=== PATIENT | female | born 1945 | race Caucasian/White ===

== ENCOUNTER 2019-02-28 15:32 | Emergency (ER) | payer MEDICARE, MEDICAID, SELFPAY ==
[2019-02-28] VITALS (7 sets, daily range): BP systolic 72–153; BP diastolic 47–80; PULSE 115–125; RESP 24–33; TEMP 37.4; O2SAT 5–96; BMI 31.7
--- NOTE | 2019-02-28 15:40 | ED_ITS ---
Entered by Tony Aquino LPN, acting as scribe for Edwin Macario MD HPI - SOB/Dyspnea General: Chief Complaint: Shortness of Breath/Dyspnea Stated Complaint: RESP DISTRESS Time Seen by Provider: 02/28/19 15:36 Source: EMS and other ([place] paperwork) Mode of arrival: EMS History of Present Illness: HPI Narrative: 74 yo female who is very hard of hearing presents from [place] with c/o shortness of breath. EMS reports pt was 77% on 3L at the [place]. She received a Duoneb in route with EMS and sat came up to the 80's. Upon arrival to ER she is sating 96% on 4L n/c. NH reported pt was having difficulty breathing this am, they administered neb treatment this am and again after lunch and pt continued to worsen. Pt is c/o pain to her abd during exam. FULL CODE status. MD elicited complaint: shortness of breath Severity: moderate Relieving factors: nothing Associated symptoms: Reports abdominal pain; Deny chest pain, diaphoresis, extremity pain, fever(s), nausea or vomiting Review of Systems Const: Denies: fever, chills, night sweats or diaphoresis Eyes: Denies: change in vision or blurry vision ENMT: Denies: throat pain Card: Denies: chest pain Resp: Reports: shortness of breath GI: Reports: abdominal pain; Denies: nausea, vomiting, constipation or change in bowel habits : Denies: painful urination Musc: Denies: extremity pain or joint pain Skin/Breast: Denies: rash Neuro: Denies: headache, difficulty walking or confusion Psych: Denies: suicidal ideation or homicidal ideation PFSH ED PFSH: Statuses (acute, chronic, etc) shown below reflect problem list status as previously entered and may not be historically accurate Medical History (Updated 02/28/19 @ 18:22 by Edwin Macario MD) CHF (congestive heart failure) (Acute) Cirrhosis, alcoholic (Acute) CVA (cerebral vascular accident) (Acute) Dementia with psychosis (Acute) GERD (gastroesophageal reflux disease) (Acute) Hepatic encephalopathy (Acute) Hepatitis (Acute) Hypertension (Acute) Seizures (Acute) Social History Smoking and tobacco status: never smoked Physical Exam Const: COMMON NORMALS: no apparent distress, oriented x3, no limitations and alert EXAM LIMITATIONS: no altered mental status GENERAL APPEARANCE: cooperative, comfortable and well developed; not in distress, not anxious and not lethargic ORIENTATION/CONSCIOUSNESS: Yes awake, Yes oriented to person, Yes oriented to place and Yes oriented to time; not lethargic HENMT: COMMON NORMALS: normocephalic, head/scalp atraumatic and external nose normal HEAD & SCALP: normocephalic and atraumatic FACE & SINUS: normal facial exam NOSE: external nose normal Eye: COMMON NORMALS: PERRL, EOMs intact bilaterally, conjunctivae normal and no scleral icterus CONJUNCTIVA: Yes conjunctivae normal PUPIL: Yes PERRL Neck/C-Spine: COMMON NORMALS: full ROM GENERAL: Yes normal visual inspection Chest: COMMONS NORMALS: inspection of chest normal and palpation of chest normal Resp: COMMON NORMALS: no retractions and no use of accessory muscles EFFORT & INSPECTION: Yes other (mild increased work of breathing) AUSCULTATION: rhonchi left upper and right upper and other (coarse lung sounds) Cardio: COMMON NORMALS: regular rate, regular rhythm, no murmurs and peripheral pulses 2+ throughout RATE: regular rate RHYTHM: regular rhythm PERIPHERAL PULSES: pulses 2+ throughout, radial pulses present and posterior tibial pulses present GI: COMMON NORMALS: soft to palpation, no hepatosplenomegaly, no masses and no bruits INSPECTION: No abdominal distension PALPATION: Yes soft, Yes tender (mild, diffuse) and Yes no hepatosplenomegaly Extremity: COMMON NORMALS: normal to inspection, full ROM, normal capillary refill, no joint enlargement and no clubbing, cyanosis or edema Neuro: COMMON NORMALS: oriented x3 SENSORIUM/ORIENTATION: Yes alert, Yes oriented to person, Yes oriented to place, Yes oriented to time and No lethargic Psych: COMMON NORMALS: mental status grossly normal, thought process normal, cooperative, affect normal, speech normal and activity/motor behavior normal SPEECH: Yes normal speech THOUGHT PROCESS: normal thought process Skin: COMMON NORMALS: no rashes or lesions noted and skin turgor normal GENERAL SKIN EXAM: no rashes or lesions noted, elasticity normal and turgor normal Course ED course: I did bedside US showing cardiac contractility, mild pulmonary edema, collapsed IVC. 1640: Discussed pt's breathing with her, explained I don't need to intubate her now, if it is needed she does agree to intubation. Consultations: Consultation #1: Discussed with Dr. Lucero, hospitalist. He advises transfer to facility with Pulmonology Time: 17:47 Consultation #2: [id number]: leno Ray, they will call us back. Vital Signs: Vital signs: Vital Signs Temperature 99.4 F 02/28/19 15:33 Pulse Rate 116 H 02/28/19 16:40 Respiratory Rate 24 H 02/28/19 16:40 Blood Pressure 72/60 02/28/19 15:33 Pulse Oximetry 94 02/28/19 16:40 MDM - SOB/Dyspnea MDM Narrative: Medical decision making narrative: Patient is a 74-year-old female halfway patient who is here for 1 day of shortness of breath increased work of breathing. She is tachypneic tachycardic moderately low blood pressure. Requiring 5 L oxygen by nasal cannula. She has a clear right lower lobe pneumonia she meets sepsis criteria will start broad-spectrum antibiotics get cultures lactic acid EKG and labs. We will also get a d-dimer since she is tachycardic. Did perform a bedside ultrasound that showed hypovolemia but she does have considerably reduced ejection fraction. Will not do a full 30 mix per kick bolus at this time but will give her aliquots of 250 mg of normal saline and assess for clinical deterioration or improvement. I believe that giving her full bolus would cause her to go into decompensated heart failure making her clinical picture worse With small boluses. She does have a significantPatient's pressure has been better pneumonia without an effusion and there is some concern for a mass in the right upper lobe. She has a lactic of 6.9 so would consider her in severe sepsis. Again I do not feel that large fluid bolus would be beneficial and would be causing things to be worse. Her potassium is high at 5.5 and she does have some T wave peaking we will give her 2 g of calcium chloride. She has gotten albuterol which should drive her potassium down. I have moved her to a resuscitation room for further closer evaluation. Her blood gas surprisingly stable for her she has a pH of 7.4 she is not retaining a large amount of CO2 seems to be compensating for her chronic breathing issues. This time I do not feel she will need intubation however will continue to watch her if this may become an option. I did discuss with her that she does want to be intubated if needed. We will place her on high flow nasal cannula for now BiPAP would not be indicated for her due to her pneumonia Lab Data: Labs: Lab Results 02/28/19 02/28/19 02/28/19 Range/Units 15:54 15:54 15:54 WBC 33.0 H* (4.0-10.0) 10^3/ uL RBC 5.40 H (4.1-5.3) 10^6/u L Hgb 12.7 (11.5-15.3) g/dL Hct 42.6 (37.0-47.0) % MCV 78.9 L (81-99) fL MCH 23.5 L (28.0-34.0) pg MCHC 29.8 L (30.0-36.0) g/dL RDW 21.2 H (12.1-15.1) % Plt Count 198 (130-400) 10^3/c mm MPV 11.4 H (7.4-10.4) fL Neut % (Auto) 89.5 % Lymph % (Auto) 2.2 % Atkinson % (Auto) 4.8 % Eos % (Auto) 0.8 % Baso % (Auto) 0.4 % Neut # (Auto) 29.5 H (1.8-7.7) 10^3/u L Lymph # (Auto) 0.7 L (0.8-4.8) 10^3/u L Atkinson # (Auto) 1.6 H (0.2-0.9) 10^3/u L Eos # (Auto) 0.3 (0.0-0.8) 10^3/u L Baso # (Auto) 0.1 (0.0-0.1) 10^3/u L Nucleated RBC % (a uto) 0.2 % Nucleated RBCs # 0.1 /100WBC D-Dimer 4.63 H (0-0.59) ug/mIFE U Specimen Type Sample Site ABG pH (7.35-7.45) ABG pCO2 (35-45) mmHg ABG pO2 (80.0-100.0) mmH g ABG HCO3 (22-26) mmol/L ABG O2 Saturation ABG Base Excess (-2.0-2.0) mmol/ L Andrew Test A-a O2 Gradient (5-10) mmHg Hematocrit (37-47) % Hgb O2 Saturation (95-100) % Carboxyhemoglobin (0.4-20.1) %THgb Methemoglobin (0.4-1.5) % Total Hemoglobin (12-16) g/dL Ionized Calcium (1.1-1.4) mmol/L O2 Liters/Min % FiO2 % Paper Cup Handle Machine Operator ID Sodium 145 (136-145) mmol/L Potassium 5.6 H (3.5-5.1) mmol/L Chloride 102 (98-107) mmol/L Carbon Dioxide 19 L (22-29) mmol/L Anion Gap 29.6 H (5-19) BUN 42 H (8-23) mg/dL Creatinine 1.4 H (0.5-0.9) mg/dL Glucose 78 (74-106) mg/dL Lactic Acid (0.5-2.2) mmol/L Calcium 9.9 (8.8-10.2) mg/Dl Magnesium 2.5 H (1.7-2.3) mg/dL Total Bilirubin 2.4 H (0.15-1.2) mg/dL AST 38 H (0-32) U/L ALT 25 (0-33) U/L Alkaline Phosphata se 147 H (35-105) IU/L Troponin T Baselin e (0-10) ng/mL NT-Pro-B Natriuret Pep 470 H (0-450) pg/mL Total Protein 7.2 (6.6-8.7) g/dL Albumin 3.2 L (3.5-5.2) g/dL Globulin 4.0 (1.3-4.6) g/dL 02/28/19 02/28/19 02/28/19 Range/Units 15:54 15:54 16:26 WBC (4.0-10.0) 10^3/ uL RBC (4.1-5.3) 10^6/u L Hgb (11.5-15.3) g/dL Hct (37.0-47.0) % MCV (81-99) fL MCH (28.0-34.0) pg MCHC (30.0-36.0) g/dL RDW (12.1-15.1) % Plt Count (130-400) 10^3/c mm MPV (7.4-10.4) fL Neut % (Auto) % Lymph % (Auto) % Atkinson % (Auto) % Eos % (Auto) % Baso % (Auto) % Neut # (Auto) (1.8-7.7) 10^3/u L Lymph # (Auto) (0.8-4.8) 10^3/u L Atkinson # (Auto) (0.2-0.9) 10^3/u L Eos # (Auto) (0.0-0.8) 10^3/u L Baso # (Auto) (0.0-0.1) 10^3/u L Nucleated RBC % (a uto) % Nucleated RBCs # /100WBC D-Dimer (0-0.59) ug/mIFE U Specimen Type Arterial Sample Site Radial, left ABG pH 7.39 (7.35-7.45) ABG pCO2 28.3 L (35-45) mmHg ABG pO2 78.8 L (80.0-100.0) mmH g ABG HCO3 17.2 L (22-26) mmol/L ABG O2 Saturation 95.6 ABG Base Excess -6.3 L (-2.0-2.0) mmol/ L Andrew Test Pos A-a O2 Gradient 166.8 H (5-10) mmHg Hematocrit 40.4 (37-47) % Hgb O2 Saturation 94.7 L (95-100) % Carboxyhemoglobin 0.8 (0.4-20.1) %THgb Methemoglobin 0.2 L (0.4-1.5) % Total Hemoglobin 13.2 (12-16) g/dL Ionized Calcium 1.2 (1.1-1.4) mmol/L O2 Liters/Min 5.0 % FiO2 40.0 % Paper Cup Handle Machine Operator ID amh Sodium 132.0 (136-145) mmol/L Potassium 5.5 H (3.5-5.1) mmol/L Chloride (98-107) mmol/L Carbon Dioxide (22-29) mmol/L Anion Gap (5-19) BUN (8-23) mg/dL Creatinine (0.5-0.9) mg/dL Glucose 65.0 L (74-106) mg/dL Lactic Acid 6.7 H* (0.5-2.2) mmol/L Calcium (8.8-10.2) mg/Dl Magnesium (1.7-2.3) mg/dL Total Bilirubin (0.15-1.2) mg/dL AST (0-32) U/L ALT (0-33) U/L Alkaline Phosphata se (35-105) IU/L Troponin T Baselin e 27 H (0-10) ng/mL NT-Pro-B Natriuret Pep (0-450) pg/mL Total Protein (6.6-8.7) g/dL Albumin (3.5-5.2) g/dL Globulin (1.3-4.6) g/dL Imaging Data^: CXR: Attestation: I personally reviewed and interpreted this imaging study as follows: My impression: Right lower lobe pneumonia pulmonary edema with cardiomegaly Radiologist's impression: Right lower and middle lobe pneumonia, pleural effusion on the right. Possible right upper lobe mass EKG Data^: EKG 1: EKG Interpretation Date: 02/28/19 EKG interpretation time: 16:09 Interpretation: MildSinus tachycardia rate of 112 parable 149 QRS 89 QTC 347 [place] normal left atrial enlargement with LVH no evidence of ischemia or infarct there are some tall T waves in anterior leads but no ST elevation or depressions in contiguous leads abnormal EKG EKG 2: EKG Interpretation Date: 02/28/19 EKG interpretation time: 17:59 Interpretation: Sinus tachycardia occasional PVCs but rate 112 SD 151 QRS 88 QTc 351 [place] normal sinus tach with occasional PVCs improving T waves no evidence of ischemia or infarct Critical Care Time Critical Care Time: Critical Care Time: Yes Total Critical Care Time: 60 Attestation: This case had a high probability of a clinically significant, sudden, or life threatening deterioration of this patient's condition which required my full and direct attention, intervention and personal management. Discharge Plan Discharge Patient Disposition: Xfer Short-Term Hosp Clinical Impression: Community acquired pneumonia Qualifiers: Laterality: right Lung location: unspecified part of lung Qualified Code(s): J18.9 - Pneumonia, unspecified organism Sepsis Qualifiers: Sepsis type: sepsis due to unspecified organism Sepsis acute organ dysfunction status: with acute organ dysfunction Severe sepsis acute organ dysfunction type: acute respiratory failure Acute respiratory failure type: with hypoxia Severe sepsis shock status: without septic shock Qualified Code(s): A41.9 - Sepsis, unspecified organism Condition: Stable Discharge Orders: Transfer Out of Facility (Order); Ordered 02/28/19 Ordered By: Edwin Macario Referrals: Daniel Esquivel, HOTEL ATTENDANT-C [Primary Care Provider] - Coding Level of Care Code ED Member Certification Manager for Chg Fwd Exam Problem Focused The documentation recorded by the Miles calloway Dani Elizabeth, LPN, accurately reflects the service I personally performed and the decisions made by Amirah dumont Kenneth F, MD Feb 28, 2019 15:32
--- NOTE | 2019-02-28 15:46 | XRR_ITS ---
PROCEDURE INFORMATION: Exam: XR Chest, 1 View Exam date and time: 02/28/2019 4:04 PM Age: 74 years old Clinical indication: Dyspnea TECHNIQUE: Imaging protocol: XR of the chest Views: 1 view. COMPARISON: CR Chest 1 [place] [id number] 06/01/2018 11:30 PM FINDINGS: Lungs: There is a new large right middle lobe and probable right lower lobe airspace opacity concerning for pneumonic infiltrate. Trace interstitial edema versus fibrosis is noted. The left lung is clear. Pleural space: There is also new pleural base mass or loculated pleural fluid along the right upper lateral chest. Heart/Mediastinum: The heart is enlarged. Bones/joints: Old rib fracture deformities are noted. XR/XR chest 1V portable [id number] IMPRESSION: 1. There is a new large right middle lobe and probable right lower lobe airspace opacity concerning for pneumonic infiltrate. 2. There is also new pleural base mass or loculated pleural fluid along the right upper lateral chest. Chest CT may be helpful for further characterization.
--- NOTE | 2019-02-28 15:48 | ECG_ITS ---
Measurements Intervals [place] Rate: 112 P: 59 [place]: 151 QRS: 20 QRSD: 88 T: 50 QT: 285 QTc: 390 SINUS TACHYCARDIA WITH OCCASIONAL SUPRAVENTRICULAR PREMATURE COMPLEXES NONSPECIFIC ST & T-WAVE ABNORMALITY ABNORMAL RHYTHM ECG INTERPRETATION BASED ON A DEFAULT AGE OF 40 YEARS Compared to ECG 01/16/2018 20:19:36 Sinus rhythm no longer present Sinus arrhythmia no longer present T-wave abnormality still present Electronically Signed On 02-28-2019 19:20:54 WRECKER OPERATOR by Kim Mcintosh M.D. [id number]
[2019-02-28 16:00] LABS: Basophils # 0.1 10^3/uL (0.0-0.1); Basophils % 0.4 %; Eosinophils # 0.3 10^3/uL (0.0-0.8); Eosinophils % 0.8 %; Hematocrit 42.6 % (37.0-47.0); Hemoglobin 12.7 g/dL (11.5-15.3); Lymphocytes # 0.7 10^3/uL (0.8-4.8); Lymphocytes % 2.2 %; Mean Corpuscular HGB Conc 29.8 g/dL (30.0-36.0); Mean Corpuscular Hemoglobin 23.5 pg (28.0-34.0); Mean Corpuscular Volume 78.9 fL (81-99); Mean Platelet Volume 11.4 fL (7.4-10.4); Monocytes # 1.6 10^3/uL (0.2-0.9); Monocytes % 4.8 %; Neutrophils # 29.5 10^3/uL (1.8-7.7); Neutrophils % 89.5 %; Nucleated Red Blood Cells # 0.1 /100WBC; Nucleated Red Blood Cells % 0.2 %; Platelet Count 198 10^3/cmm (130-400); Red Cell Distribution Width 21.2 % (12.1-15.1)
[2019-02-28] MEDS: ipratropium-albuterol 3 mL Neb INHALATION (16:13)
[2019-02-28 16:20] LABS: Troponin(5th) Baseline 27 ng/mL (0-10)
[2019-02-28 16:22] LABS: D Dimer 4.63 ug/mIFEU (0-0.59)
[2019-02-28 16:28] LABS: Lactic Sepsis W/Reflex 6.7 mmol/L (0.5-2.2)
[2019-02-28 16:29] LABS: Alanine Aminotransferase 25 U/L (0-33); Albumin Level 3.2 g/dL (3.5-5.2); Alkaline Phosphatase 147 IU/L (35-105); Anion Gap 29.6 (5-19); Aspartate Amino Transferase 38 U/L (0-32); Blood Urea Nitrogen 42 mg/dL (8-23); Calcium 9.9 mg/Dl (8.8-10.2); Carbon Dioxide 19 mmol/L (22-29); Chloride 102 mmol/L (98-107); Glucose 78 mg/dL (74-106); Magnesium 2.5 mg/dL (1.7-2.3); NT Pro B Type Natriuretic Pept 470 pg/mL (0-450); Potassium 5.6 mmol/L (3.5-5.1); Sodium 145 mmol/L (136-145); Total Bilirubin 2.4 mg/dL (0.15-1.2); Total Protein 7.2 g/dL (6.6-8.7)
--- NOTE | 2019-02-28 16:30 | CTR_ITS ---
PROCEDURE INFORMATION: Exam: CT Angiography Chest With Contrast Exam date and time: 02/28/2019 4:32 PM Age: 74 years old Clinical indication: Shortness of breath; Additional info: SOB, tachypnea, possible mass TECHNIQUE: Imaging protocol: Computed tomographic angiography of the chest with intravenous contrast. 3D rendering: MIP and/or 3D reconstructed images were created by the technologist. Total DLP: 781.94 mGy-cm Radiation optimization: All CT scans at this facility use at least one of these dose optimization techniques: automated exposure control; mA and/or kV adjustment per patient size (includes targeted exams where dose is matched to clinical indication); or iterative reconstruction. Contrast material: VISI 320; Contrast volume: 95 ml; Contrast route: RT AC; COMPARISON: CR XR chest 1V portable [id number] 02/28/2019 3:56 PM FINDINGS: Pulmonary arteries: There is no pulmonary embolus. Aorta: Unremarkable. No aortic aneurysm. No aortic dissection. Lungs: There is compressive atelectasis of the right lung with airspace opacity and air bronchograms in the right lower lobe concerning for pneumonic infiltrate. There is mild dependent atelectasis left lung. Pleural space: There is a large multiloculated right pleural effusion. The pleural base masslike opacity on the chest x-ray right upper chest is loculated fluid. There is some very mild pleural thickening best seen at the right lung base/costophrenic angle measuring up to about 2.5 mm in thickness but no pleural base mass or pleural nodules are identified. No left pleural effusion. Heart: Trace pericardial fluid is noted. Mediastinum: There is cardiomegaly. A small hiatal hernia is present. Liver: The liver has a nodular contour and there is relative hypertrophy of the caudate lobe, consistent with cirrhosis. Gallbladder and bile ducts: There is a 1.2 cm probable cyst immediately adjacent to the gallbladder fossa in the liver series 2, image 427. The visualized gallbladder is unremarkable. Adrenals: Both adrenal glands are mildly thickened with a few calcifications compatible probable hyperplasia. Kidneys and ureters: There is punctate nephrolithiasis. No hydronephrosis. Lymph nodes: No axillary adenopathy. There is a 1.2 cm short axis right paratracheal lymph node image 134. The few subcarinal lymph nodes are noted measuring up to 1.3 cm in short axis. Right hilar lymph node measures 1.3 cm in short axis image 183. No left hilar adenopathy. Mediastinal and right hilar adenopathy is identified. Bones/joints: Unremarkable. No acute fracture. Soft tissues: Unremarkable. CT/CT angio chest PE protcl [id number] IMPRESSION: 1. Large multiloculated right pleural effusion with very mild basilar pleural thickening. No definite empyema. 2. There is compressive atelectasis of the right lung with airspace opacity and air bronchograms in the right lower lobe concerning for pneumonic infiltrate. Radiation Dose CTDIVOL = (mGy): DLP = 781.94 (mGy-cm)
[2019-02-28 16:36] LABS: ABG PCO2 28.3 mmHg (35-45); ABG PH Result 7.39 (7.35-7.45); Alveolar-Arterial Oxygen Gradi 166.8 mmHg (5-10); Arterial Blood Gas Hematocrit 40.4 % (37-47); Base Excess ABG -6.3 mmol/L (-2.0-2.0); Blood Gas Allen Test Pos; Blood Gas Operator Identificat amh; Blood Gas Sample Site Radial, left; Blood Gas Sample Type Arterial; Carboxyhemoglobin 0.8 %THgb (0.4-20.1); HCO3 ABG 17.2 mmol/L (22-26); HGB O2 Sat 94.7 % (95-100); Ionized Calcium Level - ABG 1.2 mmol/L (1.1-1.4); Methemoglobin 0.2 % (0.4-1.5); Oxygen Saturation ABG 95.6; PO2 ABG 78.8 mmHg (80.0-100.0); Potassium Level - ABG 5.5 mmol/L (3.5-5.0); Total Hemoglobin 13.2 g/dL (12-16)
[2019-02-28] MEDS: iodixanol 320 mg/mL 100mL Btl IV (17:07)
[2019-02-28] MEDS: sodium chloride 0.9% 1,000 ML 999 ML IV (17:12)
[2019-02-28] MEDS: heparin 5,000 unit/mL INJ 1 mL 4000 UNIT IVP (17:12)
[2019-02-28] MEDS: calcium gluconate 0.1 gm/mL 10% SDV 10mL 2 GM IVP (17:13)
[2019-02-28] MEDS: levofloxacin-dextrose 5 % 750 MG/150 ML PREMIX 150 MG IV (17:14)
[2019-02-28] MEDS: vancomycin 1,000 MG in sodium chloride 0.9% 250 ML 250 MG IV (17:15)
[2019-02-28] MEDS: cefepime 2,000 MG in sodium chloride 0.9% (plus) 50 ML 100 MG IV (17:25)
[2019-02-28] MEDS: heparin drip 25,000 UNIT/500 ML PREMIX 14.8 UNIT IV (17:40)
--- NOTE | 2019-02-28 17:48 | ECG_ITS ---
Measurements Intervals [place] Rate: 112 P: 40 NE: 149 QRS: 8 QRSD: 89 T: 59 QT: 281 QTc: 384 SINUS TACHYCARDIA POSSIBLE LEFT ATRIAL ENLARGEMENT [-0.1mV P WAVE IN V1/V2] POSSIBLE LEFT VENTRICULAR HYPERTROPHY [VOLTAGE CRITERIA PLUS LAE OR QRS WIDENING] NONSPECIFIC T-WAVE ABNORMALITY Compared to ECG 01/16/2018 20:19:36 Sinus rhythm no longer present Sinus arrhythmia no longer present T-wave abnormality still present Electronically Signed On 02-28-2019 19:23:41 ARSON INVESTIGATOR by Kim Mcintosh M.D. [id number]
[2019-02-28 18:01] LABS: Reflex Lactate Order Y
[2019-02-28 18:41] LABS: Potassium 5.7 mmol/L (3.5-5.1)
[2019-02-28 19:35] LABS: Lactic Acid level (Lactate) 6.5 mmol/L (0.5-2.2)
[2019-02-28 19:40] LABS: ABG PCO2 29.4 mmHg (35-45); ABG PH Result 7.34 (7.35-7.45); Base Excess ABG -8.9 mmol/L (-2.0-2.0); Blood Gas Allen Test Pos; Blood Gas Sample Site Radial, left; Blood Gas Sample Type Arterial; HCO3 ABG 15.7 mmol/L (22-26); PO2 ABG 79.5 mmHg (80.0-100.0)
[2019-02-28 19:44] LABS: Influenza A by IFA Negative (Negative); Influenza B by IFA Negative (Negative)
[2019-02-28] MEDS: lactated ringers 1,000 ML 75 ML IV (20:03)
--- NOTE | 2019-02-28 21:48 | ECG_ITS ---
Measurements Intervals [place] Rate: 127 P: 48 [place]: 152 QRS: 24 QRSD: 87 T: 65 QT: 265 QTc: 386 SINUS TACHYCARDIA WITH OCCASIONAL SUPRAVENTRICULAR PREMATURE COMPLEXES MINIMAL VOLTAGE CRITERIA FOR LVH, CONSIDER NORMAL VARIANT [MEETS CRITERIA IN ONE OF: R(aVL), S(V1), R(V5), R(V5/V6)+S(V1)] NONSPECIFIC T-WAVE ABNORMALITY ABNORMAL RHYTHM ECG Compared to ECG 02/28/2019 17:31:38 No significant changes Electronically Signed On 03-01-2019 19:30:39 PROCESS ARCHITECT by Kim Mcintosh M.D. [email or web address]
[2019-02-28 23:23] LABS: Add Urine Microscopic? YES; Bacteria Urine 1+; Bilirubin Urine 1+ (NEGATIVE); Blood Urine 2+ (Negative); Glucose Urine UA Norm (Normal); Hyaline Casts Urine 0-4; Ketones Urine Negative (Negative); Leukocyte Esterase Urine Negative (Negative); Nitrate Urine Negative (Negative); Protein Urine 1+ (Negative); RBC Urine RARE /hpf (0-2); Specific Gravity, Urine 1.015 (1.005-1.030); Squamous Epithelial Cell Urine 0-4 (0-5); Urine Color Yellow (Yellow); Urobilinogen Urine 1 mg/dL (Negative); WBC Urine RARE /hpf (0-5); pH Urine 5 (5-7)
[2019-03-01 13:41] LABS: Oxygen Device NC
== END 2019-02-28 22:51 | disposition short-term general hospital (02) ==
PROVIDERS: Emergency Medicine; Emergency Provider Family Medicine; Family Provider Nurse Practitioner; PCP Nurse Practitioner
DX: A41.9 Sepsis, unspecified organism (principal); J18.8 Other pneumonia, unspecified organism; J96.01 Acute respiratory failure with hypoxia; I11.0 Hypertensive heart disease with heart failure; I50.9 Heart failure, unspecified; Z86.73 Personal history of transient ischemic attack (TIA), and cerebral infarction without residual deficits; F03.90 Unspecified dementia, unspecified severity, without behavioral disturbance, psychotic disturbance, mood disturbance, and anxiety
CPT/HCPCS: 36415; 36600; 51702; 71045; 71275; 80051; 80053; 81003; 82803; 82810; 83605; 83735; 83880; 83986; 84132; 84484; 85025; 85378; 87040; 87077; 87205; 87804; 93005; 94640; 96360; 96361; 96365; 96366; 96374; 99283; J0610; J0692; J1644; J1956; J3370; J7030; J7050; Q9967